=== PATIENT | female | born 1945 | race Caucasian/White ===

== ENCOUNTER → 2016-12-02 | Outpatient (CLI) | payer MEDICARE, OTHER ==
--- NOTE | 2016-12-02 14:02 | RADIOLOGY REPORT PS360 ---
KNEE-3 VIEWS-LT HISTORY: LT KNEE EFFUSION AND PAIN ORDERING PHYSICIAN: Luz ORTIZ PATIENT AGE: 71 years COMPARISON: None FINDINGS: Severe osteoarthritic changes involving the medial compartment and patellofemoral joint with moderate osteoarthritis of the lateral compartment. Normal alignment. No fracture or dislocation. No lytic or blastic change. IMPRESSION: Severe osteoarthritis of the left knee
--- NOTE | 2016-12-02 14:02 | RADIOLOGY REPORT PS360 ---
KNEE-3 VIEWS-LT HISTORY: LT KNEE EFFUSION AND PAIN ORDERING PHYSICIAN: Luz ORTZI PATIENT AGE: 71 years COMPARISON: None FINDINGS: Severe osteoarthritic changes involving the medial compartment and patellofemoral joint with moderate osteoarthritis of the lateral compartment. Normal alignment. No fracture or dislocation. No lytic or blastic change. IMPRESSION: Severe osteoarthritis of the left knee
== END ==
LOC: RAD 09:58
DX: M25.562 Pain in left knee (principal); M25.462 Effusion, left knee